=== PATIENT | female | born 1980 | race African-American/Black ===

== ENCOUNTER 2016-12-15 17:49 | Emergency (ER) | payer OTHER ==
[~2016-12-15] VITALS: Ht 170.2 cm; Wt 108.9 kg
[2016-12-15 18:14] VITALS: BP 129/91
--- NOTE | 2016-12-15 19:21 | ED GENERAL ADULT ---
History of Present Illness General Chief Complaint: General Adult Stated Complaint: L SHOULDER PAIN AND HEADACHE X 3WEEKS Source: patient Exam Limitations: no limitations Vital Signs & Intake/Output Vital Signs & Intake/Output Vital Signs Date Time Temp Pulse Resp B/P Pulse O2 O2 Flow FiO2 Ox Delivery Rate 12/15 1814 96.8 73 20 129/91 99 Room Air Allergies Coded Allergies: No Known Allergies (12/15/16) Triage Note: TRIAGE: PT TO ER C/C PAIN TO UPPER BACK AND HEADACHE X 2-3 WEEKS. ALSO COMPLAINS OF PAIN UNDER RIBCAGE SINCE THIS MORNING WHICH IS INTERMITTENT. +N/-V/-D. 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 -URINARY S/S. Triage Nurses Notes Reviewed? yes Onset: Abrupt Duration: better Timing: recent history Severity: moderate Severity Numbers: 5 : No Patient currently breastfeeds: No HPI: Patient is a 36-year-old female who presents emergency in the approximate 10 days ago patient had a gradual onset of right upper trapezius muscular and lateral muscular pain of her neck that was made worse after shoveling snow. Patient states that there muscular pain has been persistent unrelieved and past 2 days of NSAIDs. Patient states that shoulder movements make worse. Denies any significant mechanism injury or fall. Denies any extremity paresthesia weakness or pain. Patient is right arm dominant. Patient also complains of today of a gradual intermittent onset of right upper quadrant and epigastric pain that is made worse with eating. Patient states that earlier today she was nauseous no emesis has occurred. Last bowel movement was within last 24 hours no blood no melena noted. Denies any back pain chest pain arm pain jaw pain. Denies any vaginal bleeding vaginal discharge dysuria hematuria. (PAO DUONG) Past History Travel History Traveled to [place] past 21 day No Medical History Any Pertinent Medical History? none Neurological: NONE EENT: NONE Cardiovascular: NONE Respiratory: NONE Gastrointestinal: NONE Hepatic: NONE Renal: NONE Musculoskeletal: NONE Psychiatric: NONE Endocrine: NONE Blood Disorders: NONE Cancer(s): NONE SUPER[employer]OR [employer]ACING/Reproductive: NONE Surgical History Surgical History: non-contributory Psychosocial History What is your primary language Cook Islander Tobacco Use: Never used ETOH Use: occasional use Illicit Drug Use: denies illicit drug use Family History Hx Contributory? No (PAO DUONG) Review of Systems Review of Systems Constitutional: Reports: no symptoms. EENTM: Reports: no symptoms. Respiratory: Reports: no symptoms. Cardiovascular: Reports: no symptoms. GI: Reports: see HPI, abdominal pain. Genitourinary: Reports: no symptoms. Musculoskeletal: Reports: see HPI, muscle pain. Skin: Reports: no symptoms. Neurological/Psychological: Reports: no symptoms. Hematologic/Endocrine: Reports: no symptoms. Immunologic/Allergic: Reports: no symptoms. All Other Systems: Reviewed and Negative (PAO DUONG) Physical Exam Physical Exam General Appearance: no apparent distress, alert, comfortable Comments: Well-developed well-nourished person in no acute distress HEENT: Normal EENT exam, Neck: Supple, no lymphadenopathy, normal range of motion Right lateral muscular point tenderness noted, no central spinous tenderness noted, mild right upper trapezius point tenderness Back: Nontender, no CVA tenderness. Cardiovascular: Regular rate and rhythms no murmurs rubs or gallops, normal JVP Respiratory: Chest nontender. No respiratory distress.breath sounds clear to auscultation bilaterally Abdomen: Soft, mild epigastric point tenderness no right lower quadrant pain no right upper quadrant pain no rebound tenderness no peritoneal signs nondistended , no appreciable organomegaly. Normal bowel sounds. No ascites Extremity: No edema, no calf tenderness to palpation, normal and equal pulses. Neuro: Alert oriented x3, motor sensory normal, Skin: No appreciable rash on exposed skin, skin is warm and dry. Psych: Mood and affect is normal, memory and judgment is normal. Core Measures ACS in differential dx? No CVA/TIA Diagnosis: No Severe Sepsis Present: No Septic Shock Present: No (PAO DUONG) Progress Differential Diagnoses I considered the following diagnoses in my evaluation of the patient: [Sprain, strain, neuropathy, fracture, pancreatitis, appendicitis, cholecystitis, gastritis, peptic ulcer disease, GERD SBO AAA] Plan of Care: Orders Procedure Date/time Status LIPASE 12/15 1918 Complete HUMAN BETA HCG SCREEN 12/15 1918 Complete DIRECT BILIRUBIN 12/15 1918 Complete COMPREHENSIVE METABOLIC PANEL 12/15 1918 Complete CBC WITHOUT DIFFERENTIAL 12/15 1918 Complete AMYLASE 12/15 1918 Complete Laboratory Tests 12/15/161926: Anion Gap 9, Estimated GFR > 60, BUN/Creatinine Ratio 11.4, Glucose 78, Calcium 9.4, Total Bilirubin 0.5, Direct Bilirubin 0.4, AST 16, ALT 24, Alkaline Phosphatase 57, Total Protein 7.7, Albumin 3.8, Globulin 3.9, Albumin/Globulin Ratio 1.0 L, Amylase 81, Lipase 86, Total Beta HCG NEGATIVE, CBC w Diff NO MAN DIFF REQ, RBC 4.05 L, MCV 87.3, MCH 29.0, RDW 13.4, MPV 7.6, Gran % 43.7, Lymphocytes % 46.5, Monocytes % 7.5, Eosinophils % 0.9, Basophils % 1.4, Absolute Granulocytes 3.7, Absolute Lymphocytes 3.9 H, Absolute Monocytes 0.6, Absolute Eosinophils 0.1, Absolute Basophils 0.1, PUBS MCHC 33.2 Patient on this examination was in no apparent distress was offered pain medications and declined. Patient due to recent history of NSAID use and epigastric pain made worse with eating has suspicion of peptic ulcer disease and which blood work was unremarkable for concerns of pancreatitis or cholecystitis. Patient had no right lower quadrant pain. Patient was strongly advised to follow up with instructed in discharge plan and she had no questions. (PAO DUONG) Initial ED EKG: none (PAO DUONG) Departure Departure Disposition: HOME OR SELF CARE Condition: Stable Clinical Impression Primary Impression: Musculoskeletal disorder involving upper trapezius muscle Secondary Impressions: Epigastric pain Referrals: RADHA IBARRA,COLIN Vance PATIENT HAS NO PRIMARY CARE DR (PCP/Family) Additional Instructions: As discussed please avoid NSAID such as ibuprofen this MAY worsen YOUR symptoms. Begin [id number] Tylenol for pain. Begin TO ICE the area directly 20 minutes every 2 hours. Begin [id number] Prilosec as directed for your epigastric discomfort. If symptoms do not improve on Tuesday follow-up with your primary care doctor and follow up with ENGINE[facility] [employer] TECHNICIAN Dr. GARCIA for further evaluation treatment. If symptoms worsen return to the emergency room Departure Forms: Customer Survey General Discharge Information (PAO DUONG) PA/EMERGENCY ROOM DOCTOR Co-Sign Statement Statement: ED Attending supervision documentation- [] I saw and evaluated the patient. I have also reviewed all the pertinent lab results and diagnostic results. I agree with the findings and the plan of care as documented in the PA's/EMERGENCY ROOM DOCTOR's documentation. [X] I have reviewed the ED Record and agree with the PA's/EMERGENCY ROOM DOCTOR's documentation. [] Additions or exceptions (if any) to the PAs/EMERGENCY ROOM DOCTOR's note and plan are summarized below: [] (PRABHU IBARRA,JORDEN Hartmann) Critical Care Note Critical Care Note Critical Care Time: non-applicable (YNES MOSES,PAO)
[2016-12-15 19:53] LABS: ABSOLUTE BASOPHIL COUNT 0.1 /CUMM (0.0-0.2); ABSOLUTE EOSINOPHIL COUNT 0.1 /CUMM (0.0-0.7); ABSOLUTE GRANULOCYTE CT 3.7 /CUMM (1.4-6.5); ABSOLUTE LYMPH COUNT 3.9 /CUMM (1.2-3.4); ABSOLUTE MONOCYTE COUNT 0.6 /CUMM (0.10-0.60); BASOPHIL % 1.4 % (0.0-2.0); EOSINOPHIL % 0.9 % (0-5); GRANULOCYTE % 43.7 % (42.2-75.2); HEMATOCRIT 35.3 % (37-47); MEAN CORPUSCULAR HGB CONC 33.2 G/DL (33.0-37.0); MEAN CORPUSCULAR VOLUME 87.3 FL (81.0-99.0); MEAN PLATELET VOLUME 7.6 FL (7.4-10.4); PLATELET COUNT 398 /CUMM (130-400); RBC DISTRIBUTION WIDTH 13.4 % (11.5-14.5); RED BLOOD CELL CT 4.05 /CUMM (4.20-5.40); WHITE BLOOD CELL COUNT 8.5 /CUMM (4.8-10.8)
== END 2016-12-15 20:40 ==
LOC: ERH 17:49
PROVIDERS: Physician Assistant
DX: R10.13 Epigastric pain (principal); M25.512 Pain in left shoulder